=== PATIENT | male | born 1970 | race Caucasian/White ===

== ENCOUNTER → 2017-01-25 | Day surgery (SDC) | payer OTHER ==
[~2017-01-25] VITALS: Ht 170.1 cm; Wt 80.7 kg
[~2017-01-25] MED LIST: AMBIEN10 M1 PO; BACTRIM DS 8001 TA1 PO; BUSPIRONE10 MG PO; CARAFATE1 G1 PO; CLARITIN10 MG PO; CLINDAMYCIN HC300 MG PO; COGENTIN0.5 MG PO; COGENTIN2 MG; DARVOCET N 1001 TAB PO; DAYPRO600 M1 PO; DOXYCYCLINE MO100 MG PO; EFFEXOR XR150 MG PO; EFFEXOR75 MG PO; FIORICET 325 MG1 TAB PO; FLEXERIL10 MG PO; GEODON20 MG; HALDOL0.5 MG PO; HYCODAN 1.5 MG480 M1 PO; IBU800 M1 PO; KLONOPIN2 MG PO; LATU120T PO; LITHIUM CARBON300 MG PO; LOMOTIL 0.025 M1 TA1 PO; LOPID600 M1 PO; MEDROL DOSEPAK4 MG PO; MOTRIN800 MG PO; NORCO 10-325 T1 EACH PO; NORFLEX100 MG PO; OMEPRAZOLE40 MG PO; PROAIR HFA0.09 MG/AC IH; PROZAC40 M1 PO; REQUIP2 M2 PO; RISPERDAL1 MG PO; RISPERDAL2 MG PO; ROBAXIN750 MG PO; SEROQUEL300 MG PO; TORADOL10 MG PO; TRAMADOL HCL50 MG PO; TRAMADOL HYDROC; TRAZODONE100 MG PO; VALIUM10 MG PO; VALIUM5 MG PO; VIBRAMYCIN100 MG PO; VISTARIL50 MG PO; ZITHROMAX Z PA250 MG PO; ZOCOR20 MG PO; ZOFRAN ODT4 MG SL; ZOFRAN4 MG PO; ZYPREXA20 MG PO
--- NOTE | ~2017-01-25 | O ---
[place], [place] OPERATIVE NOTE NAME: ELADIO HUNTLEY UNIT #: [id number] ROOM: DOCTOR: LAURITA MIRZA MD BIRTHDATE: [birth year] DOS: 01/25/2017 The patient has presented with chief complaint of abdominal pain, undergoing investigation ____ screening. Labs, records and data has been reviewed. The patient with a history of diarrhea x3 months. PAST MEDICAL HISTORY: Bipolar disorder, anxiety, depression. SOCIAL HISTORY: Smoker, nonalcohol consumer. FAMILY HISTORY: Noncontributory. ALLERGIES: No known medication. PROCEDURE: Today's procedure part of investigation is colonoscopy. PREMEDICATION: Versed and Diprivan. SCOPE: Olympus folding gastroscope Q10 video. REPORT: After putting the patient in the left lateral position and after application of lubricant to the scope, the scope was introduced. Thereafter, under direct visualization, I advanced through the length of colon without difficulty. The mid ascending colon, there is a polypoid lesion; however, we did not get the chance to remove the polyp due to the fact that the patient shows respiratory distress symptoms and anesthesia was managing him. PLAN: Extubate without further therapeutics and proceeding with anesthesia management of his respiratory insufficiency. IMPRESSION: A colonic polyp, mid ascending colon without polypectomy due to respiratory distress. PLAN AND DISCUSSION: Admission, intubation evaluation and clinical reassessment. [place], [place] OPERATIVE NOTE NAME: ELADIO HUNTLEY UNIT #: [id number] ROOM: DOCTOR: LAURITA MIRZA MD BIRTHDATE: [birth year] LAURITA MIRZA MD CM:OPRECORD:OPERATIVE NOTE [id number] LAURITA MIRZA MD 01/25/17 1636 interface
[2017-01-25 12:10] VITALS: BP 129/81
[2017-01-25 15:46] VITALS: BP 118/68
[2017-01-25 16:01] VITALS: BP 122/70
[2017-01-25 16:16] VITALS: BP 125/80
[2017-01-25 16:31] VITALS: BP 121/82
[2017-01-25 16:44] VITALS: BP 118/76
== END | disposition home or self-care (01) ==
LOC: SDC 01-21 08:45
DX: K63.5 Polyp of colon (principal); F41.9 Anxiety disorder, unspecified; F31.9 Bipolar disorder, unspecified; K21.9 Gastro-esophageal reflux disease without esophagitis; F10.20 Alcohol dependence, uncomplicated; F13.20 Sedative, hypnotic or anxiolytic dependence, uncomplicated; F17.210 Nicotine dependence, cigarettes, uncomplicated; Z83.3 Family history of diabetes mellitus

== ENCOUNTER → 2017-11-25 | Outpatient (CLI) | payer OTHER ==
[2017-11-25 11:13] LABS: BASO % 0.4 % (0.0-1.0); EOS # 0.1 10*3/uL (0.0-0.4); EOS % 1.7 % (1.0-4.0); HEMATOCRIT 49.9 % (42.0-52.0); HEMOGLOBIN 17.7 g/dl (14.0-18.0); LYMPH # 2.2 10*3/uL (1.3-4.4); LYMPH % 25.7 % (27.0-41.0); MEAN CELL VOLUME 85.7 fl (80.0-94.0); MEAN CORPUSCULAR HGB 30.4 pg (27.0-31.0); MEAN CORPUSCULAR HGB CONC 35.5 g/dl (33.0-37.0); MEAN PLATELET VOLUME 9.3 fl (9.6-12.3); MONO # 0.6 10*3/uL (0.1-1.0); MONO % 7.6 % (3.0-9.0); NEUT # 5.4 10*3/uL (2.3-7.9); NEUT % 64.1 % (47.0-73.0); PLATELET COUNT AUTOMATED 328 10*3/uL (130-400); RED BLOOD COUNT 5.82 10*6/uL (4.50-5.90); RED CELL DISTRI WIDTH 12.9 % (0-14.5); WHITE BLOOD COUNT 8.4 10*3/uL (4.8-10.8)
[2017-11-25 11:44] LABS: ALBUMIN 4.2 gm/dl (3.1-4.5); ALKALINE PHOSPHATASE 100 U/L (45-117); BUN 8 mg/dl (7-24); CHLORIDE 103 mmol/L (98-107); CREATININE 1.08 mg/dL (0.70-1.30); SGOT/AST 44 IU/L (3-35); SGPT/ALT 97 U/L (12-78); SODIUM 140 mmol/L (136-145); TOTAL PROTEIN 7.8 gm/dL (6.4-8.2)
== END | disposition home or self-care (01) ==
LOC: LAB 10:45
PROVIDERS: Orthopaedic Surgery
DX: Z01.818 Encounter for other preprocedural examination (principal)

== ENCOUNTER 2017-12-15 14:33 | Emergency (ER) | payer OTHER ==
[~2017-12-15] VITALS: Ht 177.8 cm; Wt 74.8 kg
[2017-12-15] MEDS ORDERED: CEFADROXIL500 M1 PO (15:29)
== END 2017-12-15 15:54 | disposition home or self-care (01) ==
LOC: ED 14:33
DX: S51.011A Laceration without foreign body of right elbow, initial encounter (principal); T81.30XA Disruption of wound, unspecified, initial encounter; Z98.890 Other specified postprocedural states; Z79.899 Other long term (current) drug therapy; X58.XXXA Exposure to other specified factors, initial encounter; Y93.89 Activity, other specified; Y92.89 Other specified places as the place of occurrence of the external cause; Y99.9 Unspecified external cause status

== ENCOUNTER → 2018-02-21 | Outpatient (CLI) | payer OTHER ==
[~2018-02-21] MED LIST changes: +CEFADROXIL500 M1 PO
[2018-02-21 08:56] LABS: BASO % 0.4 % (0.0-1.0); EOS # 0.1 10*3/uL (0.0-0.4); EOS % 1.6 % (1.0-4.0); HEMATOCRIT 43.7 % (42.0-52.0); HEMOGLOBIN 14.9 g/dl (14.0-18.0); LYMPH # 2.3 10*3/uL (1.3-4.4); LYMPH % 29.1 % (27.0-41.0); MEAN CELL VOLUME 90.1 fl (80.0-94.0); MEAN CORPUSCULAR HGB 30.7 pg (27.0-31.0); MEAN CORPUSCULAR HGB CONC 34.1 g/dl (33.0-37.0); MEAN PLATELET VOLUME 9.1 fl (9.6-12.3); MONO # 0.5 10*3/uL (0.1-1.0); MONO % 6.7 % (3.0-9.0); NEUT # 4.8 10*3/uL (2.3-7.9); NEUT % 61.8 % (47.0-73.0); PLATELET COUNT AUTOMATED 247 10*3/uL (130-400); RED BLOOD COUNT 4.85 10*6/uL (4.50-5.90); RED CELL DISTRI WIDTH 12.9 % (0-14.5); WHITE BLOOD COUNT 7.7 10*3/uL (4.8-10.8)
[2018-02-21 09:27] LABS: ALBUMIN 3.8 gm/dl (3.1-4.5); ALKALINE PHOSPHATASE 83 U/L (45-117); BUN 11 mg/dl (7-24); CHLORIDE 103 mmol/L (98-107); CREATININE 1.04 mg/dL (0.70-1.30); POTASSIUM 4.2 mmol/L (3.5-5.1); SGOT/AST 19 IU/L (3-35); SGPT/ALT 38 U/L (12-78); SODIUM 140 mmol/L (136-145); TOTAL PROTEIN 6.9 gm/dL (6.4-8.2)
== END | disposition home or self-care (01) ==
LOC: LAB 08:42
PROVIDERS: Physician Assistant
DX: Z51.81 Encounter for therapeutic drug level monitoring (principal); Z79.899 Other long term (current) drug therapy

== ENCOUNTER 2018-03-08 12:18 | Emergency (ER) | payer OTHER ==
[~2018-03-08] VITALS: Wt 85.3 kg
[2018-03-08] MEDS ORDERED: NAPROSYN500 MG PO (12:51)
== END 2018-03-08 14:08 | disposition home or self-care (01) ==
LOC: ED 12:18
DX: S93.401A Sprain of unspecified ligament of right ankle, initial encounter (principal); R03.0 Elevated blood-pressure reading, without diagnosis of hypertension; F17.200 Nicotine dependence, unspecified, uncomplicated; X58.XXXA Exposure to other specified factors, initial encounter; Y93.39 Activity, other involving climbing, rappelling and jumping off; Y92.89 Other specified places as the place of occurrence of the external cause; Y99.8 Other external cause status

== ENCOUNTER → 2018-04-14 | Outpatient (CLI) | payer OTHER ==
[~2018-04-14] MED LIST changes: +ABILIFY MAINTE400 M1 IM; +AMLODIPINE BESYL5 MG PO; +DIAZEPAM10 M1 PO; +DOXEPIN HCL50 MG PO; +NAPROSYN500 MG PO; +NEURONTIN600 MG PO; +NORCO 5-325 TA1 EACH PO; +ROPINIROLE HYDRO1 MG PO; +THORAZINE25 MG PO
== END | disposition home or self-care (01) ==
LOC: ORTHO 03:41
DX: M25.461 Effusion, right knee (principal)

== ENCOUNTER → 2018-04-28 | Outpatient (CLI) | payer OTHER | END | disposition home or self-care (01) | LOC: MRI 11:54 | DX: S83.241A Other tear of medial meniscus, current injury, right knee, initial encounter (principal); M94.8X8 Other specified disorders of cartilage, other site; X58.XXXA Exposure to other specified factors, initial encounter; Y93.89 Activity, other specified; Y92.89 Other specified places as the place of occurrence of the external cause; Y99.8 Other external cause status ==

== ENCOUNTER → 2018-08-26 | Outpatient (CLI) | payer OTHER | END | disposition home or self-care (01) | LOC: ORTHO 04:04 | DX: M17.11 Unilateral primary osteoarthritis, right knee (principal); Z98.890 Other specified postprocedural states ==

== ENCOUNTER → 2018-09-16 | Outpatient (CLI) | payer OTHER | END | disposition home or self-care (01) | LOC: LAB 07:11 | DX: E16.1 Other hypoglycemia (principal) ==

== ENCOUNTER → 2018-10-23 | Outpatient (CLI) | payer OTHER | END | disposition home or self-care (01) | LOC: ORTHO 01:11 | DX: M25.562 Pain in left knee (principal) ==

== ENCOUNTER → 2018-12-10 | Outpatient (CLI) | payer OTHER ==
[~2018-12-10] MED LIST changes: +CHLORPROMAZINE50 M1 PO; +NORVASC10 MG PO; +XANAX1 MG PO
== END | disposition home or self-care (01) ==
LOC: MRI 09:41
DX: S83.207A Unspecified tear of unspecified meniscus, current injury, left knee, initial encounter (principal); M17.12 Unilateral primary osteoarthritis, left knee; M25.462 Effusion, left knee; R60.9 Edema, unspecified; X58.XXXA Exposure to other specified factors, initial encounter; Y93.89 Activity, other specified; Y92.89 Other specified places as the place of occurrence of the external cause; Y99.8 Other external cause status

== ENCOUNTER → 2019-01-22 | Day surgery (SDC) | payer OTHER ==
[2019-01-09 10:44] VITALS: BP 122/80
[~2019-01-22] VITALS: Ht 170.1 cm; Wt 83.5 kg
[2019-01-22 07:25] VITALS: BP 117/84
[2019-01-22 10:25] VITALS: BP 131/69
[2019-01-22 10:40] VITALS: BP 119/70
[2019-01-22 10:54] VITALS: BP 119/68
[2019-01-22 11:06] VITALS: BP 116/80
[2019-01-22 11:23] VITALS: BP 104/74
== END | disposition home or self-care (01) ==
LOC: SDC 01-09 11:00
DX: S83.242A Other tear of medial meniscus, current injury, left knee, initial encounter (principal); X58.XXXA Exposure to other specified factors, initial encounter; Y93.89 Activity, other specified; Y92.89 Other specified places as the place of occurrence of the external cause; Y99.8 Other external cause status; M22.42 Chondromalacia patellae, left knee; K21.9 Gastro-esophageal reflux disease without esophagitis; F17.210 Nicotine dependence, cigarettes, uncomplicated; I10 Essential (primary) hypertension; F41.9 Anxiety disorder, unspecified; F32.9 Major depressive disorder, single episode, unspecified; F12.90 Cannabis use, unspecified, uncomplicated; E11.9 Type 2 diabetes mellitus without complications; E78.5 Hyperlipidemia, unspecified; M19.90 Unspecified osteoarthritis, unspecified site; M51.16 Intervertebral disc disorders with radiculopathy, lumbar region; G89.29 Other chronic pain; F13.20 Sedative, hypnotic or anxiolytic dependence, uncomplicated; F42.9 Obsessive-compulsive disorder, unspecified; Z98.890 Other specified postprocedural states; Z79.1 Long term (current) use of non-steroidal anti-inflammatories (NSAID); Z79.899 Other long term (current) drug therapy; Z86.010 Personal history of colon polyps; Z72.89 Other problems related to lifestyle; Z82.49 Family history of ischemic heart disease and other diseases of the circulatory system; Z83.3 Family history of diabetes mellitus

== ENCOUNTER → 2019-03-06 | Outpatient (CLI) | payer OTHER | END | disposition home or self-care (01) | LOC: ORTHO 00:40 | DX: M79.642 Pain in left hand (principal); M25.532 Pain in left wrist ==

== ENCOUNTER → 2019-06-23 | Outpatient (CLI) | payer OTHER | END | disposition home or self-care (01) | LOC: LAB 10:05 | DX: N52.9 Male erectile dysfunction, unspecified (principal) ==

== ENCOUNTER → 2019-07-03 | Outpatient (CLI) | payer OTHER | END | disposition home or self-care (01) | LOC: ORTHO 02:42 | DX: M17.11 Unilateral primary osteoarthritis, right knee (principal) ==

== ENCOUNTER 2019-10-04 02:19 | Emergency (ER) | payer OTHER ==
[~2019-10-04] VITALS: Ht 170.1 cm; Wt 83.9 kg
[2019-10-04] MEDS ORDERED: ANUSOL-HC25 MG R (02:37)
== END 2019-10-04 02:40 | disposition home or self-care (01) ==
LOC: ED 02:19
DX: K60.0 Acute anal fissure (principal); F41.9 Anxiety disorder, unspecified; F17.200 Nicotine dependence, unspecified, uncomplicated; Z79.899 Other long term (current) drug therapy